=== PATIENT | male | born 1975 | race Two or more races ===

== ENCOUNTER 2017-11-20 22:12 | Emergency (ER) | payer MEDICAID ==
[~2017-11-20] VITALS: Ht 172.7 cm; Wt 99.8 kg
[2017-11-20 22:33] VITALS: BP 154/9
[2017-11-20] MEDS ORDERED: IBUPROFEN 600 MG TABLET PO ONE ×2 (23:30)
[2017-11-21] MEDS ORDERED: [UNRECOGNIZED DRUG - OTHER] ONE (00:02)
--- NOTE | 2017-11-21 00:02 | NUR ---
MEDICATED WITH EAR DROPS VERBALLY ORDERED BY DR. PALAFOX
[2017-11-21] MEDS ORDERED: [UNRECOGNIZED DRUG - OTHER] OT ONE ×2 (00:30)
== END 2017-11-21 00:04 | disposition home or self-care (01) ==
LOC: ER 22:13
DX: H60.8X2 Other otitis externa, left ear (principal)
CPT/HCPCS: 99282; A4606; Z7610

== ENCOUNTER 2018-01-07 22:27 | Inpatient (IN) | payer MEDICAID ==
[~2018-01-07] VITALS: Ht 167.6 cm; Wt 110.0 kg
--- NOTE | 2018-01-08 01:05 | NUR ---
pt arrived c/o of tingling sensationg on the left side of the body with weakness, denies pain.
[2018-01-08] MEDS ORDERED: IV NS 0.9% 500 ML BAG IV ONE (01:30)
--- NOTE | 2018-01-08 01:45 | NUR ---
18G IV TO R AC X 1 ATTEMPT USING ASEPTIC TECH, BLOOD HANDED OVER TO THE LAB AT BEDSIDE. IV FLUSHES EASILY WITH NS, NO S/S INFILTRATION NOTED AT THIS TIME.
[2018-01-08 01:56] LABS: BASOPHILS % (AUTO) 0.3 % (0.0-2.0); EOSINOPHILS % (AUTO) 2.8 % (0.0-6.0); HEMATOCRIT 48 % (39-51); HEMOGLOBIN 15.5 g/dL (13.5-17.5); LYMPHOCYTES # (AUTO) 2.8 /CMM (0.8-4.8); MEAN CORPUSCULAR HGB CONC 32 g/dl (31.0-36.0); MEAN CORPUSCULAR VOLUME 86 fL (80-96); MONOCYTES # (AUTO) 0.5 /CMM (0.1-1.30); MONOCYTES % (AUTO) 6.1 % (2.0-12.0); NEUTROPHILS # (AUTO) 4.9 /CMM (1.8-8.9); NEUTROPHILS % (AUTO) 57.8 % (43.0-81.0); PLATELET COUNT (AUTO) 274 /CMM (150-450); RDW COEFFICIENT OF VARIATION 13.4 (11.5-15.0); RED BLOOD CELL COUNT(AUTO) 5.61 MIL/uL (4.5-6.0); WHITE BLOOD COUNT (AUTO) 8.5 K/uL (4.3-11.0)
[2018-01-08 02:07] LABS: CALCIUM, SERUM 8.6 mg/dL (8.5-10.1); CARBON DIOXIDE 27 mmol/L (21-32); CHLORIDE 100 mmol/L (98-107); CREATININE 0.8 mg/dL (0.6-1.3); GLUCOSE 206 mg/dL (74-106); POTASSIUM 3.4 mmol/L (3.5-5.1); SODIUM SERUM 135 mmol/L (136-145); UREA NITROGEN, BLOOD 16 mg/dL (7-18)
[2018-01-08 02:09] LABS: ALCOHOL, BLOOD < 3 mg/dL (0-0)
[2018-01-08 02:12] LABS: INR 0.96 (0.87-1.13)
[2018-01-08 02:15] LABS: TROPONIN I < 0.017 ng/mL (0.00-0.056)
[2018-01-08] MEDS ORDERED: ASPIRIN 81 MG TAB.CHEW PO ONE (02:30)
--- NOTE | 2018-01-08 02:48 | NUR ---
REPORT GIVEN NURSE PRIETO JOHANSEN
--- NOTE | 2018-01-08 03:05 | NUR ---
TELE ADMISSION NOTES Patient came to unit via gurney. at bedside. Breathing even and unlabored. Not in any distress. BRETT Olivera translated for me. Patient denies any chest pain, denies any weakness. Stated that he came to the hospital for shortness of breath and numbness of left arm and leg. V/S checked, WNL. No skin issues. Patient able to follow commands. No complaints as of this time. Tele monitor in place, sinus rhythm 81. Oriented to call murry, placed within easy reach. Bed in low locked position. Will continue to monitor accordingly
[2018-01-08 03:10] VITALS: BP 137/82
[2018-01-08] MEDS ORDERED: ASPIRIN 81 MG TAB.CHEW ONE (03:12)
--- NOTE | 2018-01-08 04:45 | NUR ---
ROAD INSPECTOR NOTES Patient is alert, oriented x 4. Able to follow directions/commands. No drift with both arms and legs. Normal horizontal movement, no visual field defect. Normal articulation, able to speak fluently in french with no problems. Able to answer question. Patient able to close lips. Gag reflex is strong and able to cough. Patient was able to drink water with no problem. No drooling noted, no dribbling of water noted, no facial droop noted. Educational pamphlet given to patient. Will notify MD and monitor accordingly
--- NOTE | 2018-01-08 05:25 | NUR ---
CLAY MIXER NOTES Called [facility] to inform Dr. De Luna regarding swallow test. A/W callback
[2018-01-08] MEDS ORDERED: BLOOD SUGAR DIAGNOSTIC 1 EACH STRIP IN SCH (06:00)
[2018-01-08] MEDS: BLOOD SUGAR DIAGNOSTIC 1 EACH STRIP IN SCH ×4 (06:32→21:38)
[2018-01-08 06:43] LABS: BASOPHILS % (AUTO) 0.5 % (0.0-2.0); EOSINOPHILS % (AUTO) 2.2 % (0.0-6.0); HEMATOCRIT 45 % (39-51); HEMOGLOBIN 14.9 g/dL (13.5-17.5); LYMPHOCYTES # (AUTO) 2.4 /CMM (0.8-4.8); LYMPHOCYTES % (AUTO) 32.8 % (20.0-44.0); MEAN CORPUSCULAR HGB CONC 33 g/dl (31.0-36.0); MEAN CORPUSCULAR VOLUME 86 fL (80-96); MONOCYTES # (AUTO) 0.5 /CMM (0.1-1.30); MONOCYTES % (AUTO) 6.6 % (2.0-12.0); NEUTROPHILS # (AUTO) 4.2 /CMM (1.8-8.9); NEUTROPHILS % (AUTO) 57.9 % (43.0-81.0); PLATELET COUNT (AUTO) 287 /CMM (150-450); RDW COEFFICIENT OF VARIATION 13.6 (11.5-15.0); RED BLOOD CELL COUNT(AUTO) 5.27 MIL/uL (4.5-6.0); WHITE BLOOD COUNT (AUTO) 7.2 K/uL (4.3-11.0)
[2018-01-08 06:52] LABS: INR 0.99 (0.87-1.13)
[2018-01-08 06:53] LABS: CALCIUM, SERUM 8.5 mg/dL (8.5-10.1); CREATININE 0.7 mg/dL (0.6-1.3); POTASSIUM 3.3 mmol/L (3.5-5.1)
[2018-01-08 07:01] LABS: THYROID STIMULATING HORMONE 3.013 uIU/mL (0.358-3.74)
[2018-01-08 07:03] LABS: ALBUMIN 3.3 g/dL (3.4-5.0); BILIRUBIN,TOTAL 0.3 mg/dL (0.2-1.0); TOTAL PROTEIN, SERUM 6.8 g/dL (6.4-8.2)
--- NOTE | 2018-01-08 07:35 | NUR ---
PREMIUM CANCELLATION CLERK CLOSING NOTES Patient in bed, alert,oriented x 4. Family at bedside. Breathing even and unlabored. Not in any distress. MRSA swab done. Urine collected, sent to lab. Tele monitor in place, sinus rhythm 90. All needs attended to. All due medications given as ordered. Endorsed ALYSSA to oncoming RN.
--- NOTE | 2018-01-08 07:37 | NUR ---
FUEL OIL CLERK OPENING NOTE RECEIVED PATIENT IN BED. ALERT ORIENTED X4. ON ROOM AIR TOLERATING WELL. IN NO APPARENT DISTRESS OR DISCOMFORT AT THIS TIME. RESPIRATIONS EVEN AND UNLABORED. DENIES PAIN AND SOB. PATIENT WITH CLEAR SPEECH, ABLE TO COMMUNICATE NEEDS, BARBADIAN SPEAKING. NO FACIAL DROOPING OBSERVED. ALFREDO.PATIENT IS ABLE TO AMBULATE TO BATHROOM. RIGHT AC 18G IVC SL, PATENT AND INTACT. ALL NEEDS ATTENDED. BED IN LOW LOCKED POSITION, SIDE RAILS UP X2, CALL LIGHT WITHIN EASY REACH. WILL CONTINUE TO MONITOR.
[2018-01-08 08:00] VITALS: BP 127/71
[2018-01-08] MEDS ORDERED: POTASSIUM CHLORIDE 20 MEQ TAB.PRT.SR PO SCH ×2 (10:30→13:00)
[2018-01-08 11:30] LABS: CHOLESTEROL 192 mg/dL (<200); HDL CHOLESTEROL 43 mg/dL (40-60); LDL 125 mg/dL (0-99); TRIGLYCERIDES 243 mg/dL (30-150)
[2018-01-08] MEDS: ASPIRIN EC 81 MG TABLET.DR PO SCH (12:38)
[2018-01-08] MEDS: ATORVASTATIN 10 MG TABLET PO SCH ×2 (12:38→21:38)
[2018-01-08 12:54] LABS: APPEARANCE,URINE CLEAR (CLEAR); BILIRUBIN,URINE NEGATIVE (NEGATIVE); BLOOD, URINE NEGATIVE Ery/uL (NEGATIVE); COLOR,URINE YELLOW (YELLOW); KETONES,URINE NEGATIVE (NEGATIVE); LEUKOCYTE ESTERASE ,URINE NEGATIVE (NEGATIVE); NITRITE, URINE NEGATIVE (NEGATIVE); PROTEIN,URINE NEGATIVE (NEGATIVE); UGLUCOSE NEGATIVE (NEGATIVE); UROBILINOGEN,URINE 0.2 EU/dL (0.2)
[2018-01-08] MEDS ORDERED: SITAGLIPTIN PHOSPHATE 50 MG TABLET PO SCH (13:00)
[2018-01-08] MEDS: METFORMIN 500 MG TABLET PO SCH ×2 (13:55→17:10)
[2018-01-08] MEDS: LINAGLIPTIN 5 MG TABLET PO SCH (13:55)
[2018-01-08] MEDS: LISINOPRIL (10MG) 10 MG TABLET PO SCH (13:55)
[2018-01-08 16:00] VITALS: BP 132/85
--- NOTE | 2018-01-08 19:20 | NUR ---
MS RN CLOSING NOTE PATIENT IN BED. ALERT ORIENTED X4. ON ROOM AIR TOLERATING WELL. IN NO APPARENT DISTRESS OR DISCOMFORT AT THIS TIME. RESPIRATIONS EVEN AND UNLABORED. DENIES PAIN AND SOB. PATIENT WITH CLEAR SPEECH, ABLE TO COMMUNICATE NEEDS, ICELANDIC SPEAKING. NO FACIAL DROOPING OBSERVED. ALFREDO. DENIES UNILATERAL OR BILATERAL WEAKNESS. PATIENT IS ABLE TO AMBULATE TO BATHROOM. RIGHT AC 18G IVC SL, PATENT AND INTACT. ALL NEEDS ATTENDED. KEPT CLEAN AND COMFORTABLE. BED IN LOW LOCKED POSITION, SIDE RAILS UP X2, CALL LIGHT WITHIN EASY REACH. WILL ENDORSE TO PM NURSE FOR ALYSSA.
--- NOTE | 2018-01-08 19:30 | NUR ---
RN OPENING NOTES PATIENT AWAKE AND RESTING IN BED. PT PRIMARILY VIET[place]ESE SPEAKER. FAMILY AT BEDSIDE. NO COMPLAINTS OF PAIN, SOB OR DISTRESS AT THIS TIME. NO FACIAL DROOPING NOTED. DENIES WEAKNESS IN EXTREMITIES. PT HAS A RIGHT AC #18 INTACT AND PATENT. SAFETY PRECAUTIONS IN PLACE, BED IN LOWEST LOCKED POSITION, X2 SIDE RAILS UP AND CALL LIGHT WITHIN REACH. WILL CONTINUE TO MONITOR.
[2018-01-08 20:00] VITALS: BP_SYST 121; BP_SYST 134; BP_DIAS 75; BP_DIAS 79
--- NOTE | 2018-01-09 06:43 | NUR ---
RN CLOSING NOTES PATIENT AWAKE AND RESTING IN BED. PT PRIMARILY ESTONIAN SPEAKER. NO COMPLAINTS OF PAIN, SOB OR DISTRESS OVERNIGHT. NO FACIAL DROOPING NOTED. DENIES WEAKNESS IN EXTREMITIES. PT HAS A RIGHT AC #18 INTACT AND PATENT. SAFETY PRECAUTIONS IN PLACE, BED IN LOWEST LOCKED POSITION, X2 SIDE RAILS UP AND CALL LIGHT WITHIN REACH. WILL ENDORSE TO DAY SHIFT NURSE FOR CONTINUITY OF CARE.
[2018-01-09 06:51] LABS: BASOPHILS % (AUTO) 0.3 % (0.0-2.0); EOSINOPHILS % (AUTO) 2.8 % (0.0-6.0); HEMATOCRIT 47 % (39-51); HEMOGLOBIN 15.4 g/dL (13.5-17.5); LYMPHOCYTES # (AUTO) 2.2 /CMM (0.8-4.8); LYMPHOCYTES % (AUTO) 25.3 % (20.0-44.0); MEAN CORPUSCULAR HGB CONC 33 g/dl (31.0-36.0); MEAN CORPUSCULAR VOLUME 86 fL (80-96); MONOCYTES # (AUTO) 0.7 /CMM (0.1-1.30); MONOCYTES % (AUTO) 7.8 % (2.0-12.0); NEUTROPHILS # (AUTO) 5.7 /CMM (1.8-8.9); NEUTROPHILS % (AUTO) 63.8 % (43.0-81.0); PLATELET COUNT (AUTO) 278 /CMM (150-450); RDW COEFFICIENT OF VARIATION 13.5 (11.5-15.0); RED BLOOD CELL COUNT(AUTO) 5.45 MIL/uL (4.5-6.0); WHITE BLOOD COUNT (AUTO) 8.9 K/uL (4.3-11.0)
[2018-01-09 06:56] LABS: CALCIUM, SERUM 8.8 mg/dL (8.5-10.1); CREATININE 0.8 mg/dL (0.6-1.3); POTASSIUM 3.5 mmol/L (3.5-5.1)
[2018-01-09] MEDS: BLOOD SUGAR DIAGNOSTIC 1 EACH STRIP IN SCH ×3 (06:57→16:31)
[2018-01-09 07:09] LABS: INR 0.98 (0.87-1.13)
--- NOTE | 2018-01-09 08:10 | NUR ---
ms rn receive don bed, awake,alert,oriented x4,not in any form of distress,respirations even and unlabored,no sob noted, lungs are clear,abdomen soft,positive bowel sounds,denies pain at this time,will monitor patient.
[2018-01-09 08:15] VITALS: BP 130/79
--- NOTE | 2018-01-09 09:00 | NUR ---
ms murcia breakfast served,due meds given,tolerated well.
[2018-01-09] MEDS: METFORMIN 500 MG TABLET PO SCH ×2 (09:29→16:31)
[2018-01-09] MEDS: ASPIRIN EC 81 MG TABLET.DR PO SCH (09:30)
[2018-01-09] MEDS: LISINOPRIL (10MG) 10 MG TABLET PO SCH (09:30)
[2018-01-09] MEDS: LINAGLIPTIN 5 MG TABLET PO SCH (09:30)
--- NOTE | 2018-01-09 11:30 | NUR ---
ms rn was seen by gonzalez hernandez/ order to go home today, pt aware.
--- NOTE | 2018-01-09 12:00 | NUR ---
MS RN BLOOD SUGAR - 179 - NO COVERAGE ORDERED,PATIENT IS ON 2 PO DM PILLS.
[2018-01-09] MEDS ORDERED: METF-440 PO (14:33)
[2018-01-09] MEDS ORDERED: LINA5TAB PO (14:33)
[2018-01-09] MEDS ORDERED: ASPI-1152 PO (14:33)
[2018-01-09] MEDS ORDERED: LISI10TA59 PO (14:33)
[2018-01-09] MEDS ORDERED: ATOR10TA PO (14:33)
[2018-01-09 16:00] VITALS: BP 147/79
--- NOTE | 2018-01-09 16:30 | NUR ---
MS JOHANSEN BLOOD SUGAR - 131 - NO COVERAGE ORDERED, DUE MEDS GIVEN,TOLERATED WELL.
--- NOTE | 2018-01-09 16:45 | NUR ---
MS RN PATIENT WENT HOME ACCOMPANIED BY FAMILY, DISCHARGE INSTRUCTIONS GIVEN W/ RX. ALL NEEDS ATTENDED.
== END 2018-01-09 16:30 | disposition home or self-care (01) | DRG 47 ==
LOC: ER 22:30 → TELE 01-08 02:38 → MED 01-08 12:33
PROVIDERS: ADMIT Internal Medicine; ATTEND Internal Medicine
DX: G45.9 Transient cerebral ischemic attack, unspecified (principal); E43 Unspecified severe protein-calorie malnutrition; E88.81 Metabolic syndrome and other insulin resistance; R20.2 Paresthesia of skin; E11.65 Type 2 diabetes mellitus with hyperglycemia; E87.6 Hypokalemia; E78.5 Hyperlipidemia, unspecified; E66.01 Morbid (severe) obesity due to excess calories; E88.09 Other disorders of plasma-protein metabolism, not elsewhere classified; R51 Headache; Z68.39 Body mass index [BMI] 39.0-39.9, adult; I34.0 Nonrheumatic mitral (valve) insufficiency; R07.9 Chest pain, unspecified; I11.9 Hypertensive heart disease without heart failure
CPT/HCPCS: 36415; 70450-TC; 71045-TC; 80048-TC; 80053-TC; 80061-TC; 80305; 81000-TC; 82962-TC; 83880; 84443-TC; 84484-TC; 85025-TC; 85652-TC; 85730-TC; 87081-TC; 92611-TC; 93307-TC; 93880-TC; A4606; G0480; J7040; Z7610

== ENCOUNTER 2018-01-09 22:18 | Emergency (ER) | payer MEDICAID ==
[~2018-01-09] VITALS: Ht 167.6 cm; Wt 108.9 kg
[~2018-01-09 22:18] MED LIST: ASPI-1152 PO; ATOR10TA PO; LINA5TAB PO; LISI10TA59 PO; METF-440 PO
[2018-01-09 23:45] VITALS: BP 146/104
--- NOTE | 2018-01-09 23:47 | NUR ---
EKG DONE AT BEDSIDE
[2018-01-10] MEDS ORDERED: LORAZEPAM 1 MG TABLET PO ONE
[2018-01-10] MEDS ORDERED: LORAZEPAM 1 MG TABLET ONE (00:05)
--- NOTE | 2018-01-10 00:07 | NUR ---
ALL ORDERED MEDS GIVEN
--- NOTE | 2018-01-10 00:08 | NUR ---
Patient discharged to home in stable condition. Written and verbal after care instructions given. Patient verbalizes understanding of instruction. Patient instructed not to drive. Patient left on foot walking with steady gait. No s/s of acute distress or sob noted. VS stable.
== END 2018-01-10 00:10 | disposition home or self-care (01) ==
LOC: ER 22:22
DX: F41.9 Anxiety disorder, unspecified (principal); Z79.82 Long term (current) use of aspirin
CPT/HCPCS: 93005; 99283; A4606; Z7610

== ENCOUNTER 2018-05-10 03:14 | Emergency (ER) | payer MEDICAID ==
[~2018-05-10] VITALS: Ht 172.7 cm; Wt 103.0 kg
--- NOTE | 2018-05-10 03:20 | NUR ---
Pt came to emergency dept. complaining of chest pain for the last week, with left arm numbness. Pt is currently not having any chest pain. Pt states that he stopped taking BP medication 4 months ago. Pt AAXO4. Pt put on the monitor and pulse ox. Pt hypertensive on the monitor. Respirations even and unlabored. Pt pending eval from ER .
[2018-05-10] MEDS ORDERED: ASPIRIN 325 MG TABLET PO ONE (03:30)
[2018-05-10] MEDS ORDERED: NITROGLYCERIN 0.4 MG/TAB BOTTLE SL ONE (03:30)
[2018-05-10] MEDS ORDERED: NITROGLYCERIN 0.4 MG/TAB BOTTLE ONE (03:31)
[2018-05-10] MEDS ORDERED: ASPIRIN 325 MG TABLET ONE (03:32)
--- NOTE | 2018-05-10 03:45 | NUR ---
Radiology at bedside for XRAY.
[2018-05-10 03:48] LABS: BASOPHILS # (AUTO) 0.1 /CMM (0.0-0.2); BASOPHILS % (AUTO) 0.8 % (0.0-2.0); EOSINOPHILS % (AUTO) 2.5 % (0.0-6.0); HEMATOCRIT 47 % (39-51); HEMOGLOBIN 15.9 g/dL (13.5-17.5); LYMPHOCYTES # (AUTO) 2.6 /CMM (0.8-4.8); LYMPHOCYTES % (AUTO) 37.1 % (20.0-44.0); MEAN CORPUSCULAR HGB CONC 33 g/dl (31.0-36.0); MEAN CORPUSCULAR VOLUME 86 fL (80-96); MONOCYTES # (AUTO) 0.7 /CMM (0.1-1.30); MONOCYTES % (AUTO) 9.2 % (2.0-12.0); NEUTROPHILS # (AUTO) 3.6 /CMM (1.8-8.9); NEUTROPHILS % (AUTO) 50.4 % (43.0-81.0); PLATELET COUNT (AUTO) 318 /CMM (150-450); RED BLOOD CELL COUNT(AUTO) 5.53 MIL/uL (4.5-6.0); WHITE BLOOD COUNT (AUTO) 7.1 K/uL (4.3-11.0)
[2018-05-10 03:56] LABS: CALCIUM, SERUM 8.8 mg/dL (8.5-10.1); CARBON DIOXIDE 27 mmol/L (21-32); CHLORIDE 100 mmol/L (98-107); CREATININE 0.7 mg/dL (0.6-1.3); GLUCOSE 107 mg/dL (74-106); POTASSIUM 3.4 mmol/L (3.5-5.1); SODIUM SERUM 138 mmol/L (136-145); UREA NITROGEN, BLOOD 13 mg/dL (7-18)
--- NOTE | 2018-05-10 04:08 | NUR ---
Pt ambulatory with steady gait to bathroom.
--- NOTE | 2018-05-10 04:14 | NUR ---
Pt resting in bed and being monitored.
--- NOTE | 2018-05-10 05:00 | NUR ---
rPatient is resting comfortably in bed with eyes closed. Easily aroused. VSS. NAD NOTED.
--- NOTE | 2018-05-10 06:14 | NUR ---
Patient is resting comfortably in bed with eyes closed. Easily aroused. VSS. NAD NOTED. FAMILY AT BEDSIDE.
--- NOTE | 2018-05-10 06:24 | NUR ---
Translator Deaf at bedside for lab draw.
[2018-05-10 07:21] VITALS: BP 148/89
--- NOTE | 2018-05-10 07:22 | NUR ---
Patient discharged to home in stable condition. Written and verbal after care instructions given. Patient verbalizes understanding of instruction.IV removed. Catheter intact and site benign. Pressure and 4x4 applied to site. No bleeding noted.
== END 2018-05-10 07:24 | disposition home or self-care (01) ==
LOC: ER 03:14
DX: R07.89 Other chest pain (principal); I16.0 Hypertensive urgency; I10 Essential (primary) hypertension; Z79.82 Long term (current) use of aspirin
CPT/HCPCS: 36415; 71045-TC; 80048-TC; 82962-TC; 84484-TC; 85025-TC; 85378-TC; 85730-TC

== ENCOUNTER 2018-06-16 21:18 | Emergency (ER) | payer MEDICAID ==
[~2018-06-16] VITALS: Ht 160 cm; Wt 99.8 kg
[2018-06-16 21:28] VITALS: BP 146/93
[2018-06-16] MEDS ORDERED: PROPARACAINE HCL OPHTH 15 ML BOTTLE ONE (22:21)
[2018-06-16] MEDS ORDERED: TETRACAINE HCL/PF 0.5% UD 2 ML BOTTLE ONE (22:21)
[2018-06-16] MEDS ORDERED: FLUORESCEIN SODIUM OPHTH 1 EA STRIP OP ONE (22:30)
[2018-06-16] MEDS ORDERED: IV NS 0.9% 1,000 ML BAG IV ONE (22:30)
[2018-06-16] MEDS ORDERED: TETRACAINE HCL/PF 0.5% UD 2 ML BOTTLE OP ONE (22:30)
[2018-06-16] MEDS ORDERED: FLUORESCEIN SODIUM OPHTH 1 EA STRIP ONE (22:32)
== END 2018-06-16 23:20 | disposition home or self-care (01) ==
LOC: ER 21:24
DX: S05.01XA Injury of conjunctiva and corneal abrasion without foreign body, right eye, initial encounter (principal); I25.10 Atherosclerotic heart disease of native coronary artery without angina pectoris; I10 Essential (primary) hypertension; E11.9 Type 2 diabetes mellitus without complications; Z79.82 Long term (current) use of aspirin; X58.XXXA Exposure to other specified factors, initial encounter; Y93.89 Activity, other specified; Y92.89 Other specified places as the place of occurrence of the external cause; Y99.8 Other external cause status

== ENCOUNTER 2019-07-18 05:48 | Emergency (ER) | payer MEDICAID ==
[~2019-07-18] VITALS: Ht 160 cm; Wt 99.8 kg
[~2019-07-18 05:48] MED LIST changes: +LISI-605 PO; -LISI10TA59 PO
[2019-07-18 05:58] VITALS: BP 151/75
== END 2019-07-18 06:54 | disposition home or self-care (01) ==
LOC: ER 05:51
DX: E11.65 Type 2 diabetes mellitus with hyperglycemia (principal); I10 Essential (primary) hypertension; K21.9 Gastro-esophageal reflux disease without esophagitis; I25.10 Atherosclerotic heart disease of native coronary artery without angina pectoris; Z79.899 Other long term (current) drug therapy; Z79.82 Long term (current) use of aspirin; Z76.0 Encounter for issue of repeat prescription; Z79.84 Long term (current) use of oral hypoglycemic drugs
CPT/HCPCS: 82962-TC

== ENCOUNTER 2019-08-25 08:31 | Emergency (ER) | payer MEDICAID ==
[~2019-08-25] VITALS: Ht 167.6 cm; Wt 105.2 kg
--- NOTE | 2019-08-25 08:38 | NUR ---
patient came in to the er c/o upper and lower extremities pain x 3 months 8/10 pain scale. On room air, breathing evenly and unlabored. kept comfortable, will continue to monitor accordingly.
[2019-08-25] MEDS ORDERED: ONDANSETRON HCL/PF 4 MG/2 ML VIAL ONE (08:56)
[2019-08-25] MEDS ORDERED: MORPHINE SULFATE INJ 4 MG/ML DISP.SYRIN ONE (08:57)
[2019-08-25] MEDS ORDERED: MORPHINE SULFATE INJ 2 MG/ML DISP.SYRIN IV ONE (09:00)
[2019-08-25] MEDS ORDERED: ONDANSETRON HCL/PF 4 MG/2 ML VIAL IVP ONE (09:00)
[2019-08-25] MEDS ORDERED: IV NS 0.9% 500 ML BAG IV ONE (09:00)
[2019-08-25 09:09] LABS: BASOPHILS % (AUTO) 0.5 % (0.0-2.0); EOSINOPHILS % (AUTO) 2.4 % (0.0-6.0); HEMATOCRIT 47 % (39-51); HEMOGLOBIN 15.5 g/dL (13.5-17.5); LYMPHOCYTES # (AUTO) 1.7 /CMM (0.8-4.8); LYMPHOCYTES % (AUTO) 32.8 % (20.0-44.0); MEAN CORPUSCULAR HGB CONC 33 g/dl (31.0-36.0); MEAN CORPUSCULAR VOLUME 86 fL (80-96); MONOCYTES # (AUTO) 0.4 /CMM (0.1-1.30); MONOCYTES % (AUTO) 7.3 % (2.0-12.0); NEUTROPHILS # (AUTO) 2.9 /CMM (1.8-8.9); PLATELET COUNT (AUTO) 307 /CMM (150-450); RED BLOOD CELL COUNT(AUTO) 5.47 MIL/uL (4.5-6.0); WHITE BLOOD COUNT (AUTO) 5.1 K/uL (4.3-11.0)
[2019-08-25 09:16] LABS: CALCIUM, SERUM 8.6 mg/dL (8.5-10.1); CREATININE 0.8 mg/dL (0.6-1.3); POTASSIUM 3.6 mmol/L (3.5-5.1)
[2019-08-25 10:18] VITALS: BP 136/83
--- NOTE | 2019-08-25 10:18 | NUR ---
patient a/ox4, breathing even and unlabored, no sob noted, needs attended. kept comfortable. IV removed. Catheter intact and site benign. Pressure and 4x4 applied to site. No bleeding noted.Patient discharged to home in stable condition. Written and verbal after care instructions given. Patient verbalizes understanding of instruction.
== END 2019-08-25 10:19 | disposition home or self-care (01) ==
LOC: ER 08:33
DX: M79.18 Myalgia, other site (principal); I10 Essential (primary) hypertension; I25.10 Atherosclerotic heart disease of native coronary artery without angina pectoris; E11.9 Type 2 diabetes mellitus without complications; Z79.899 Other long term (current) drug therapy; Z79.82 Long term (current) use of aspirin
CPT/HCPCS: 36415; 80048; 85025; 96374; 96375; 99284; J2270; J2405; J7040

== ENCOUNTER 2020-12-17 22:19 | Emergency (ER) | payer MEDICAID ==
[~2020-12-17] VITALS: Ht 160 cm; Wt 97.5 kg
[~2020-12-17 22:19] MED LIST changes: -ASPI-1152 PO; +ASPI-1420 PO; -LISI-605 PO; +LISI10TA30 PO
[2020-12-17 23:35] VITALS: BP 139/89
[2020-12-17] MEDS ORDERED: CIPR7.5D9 EACH EAR (23:53)
== END 2020-12-17 23:57 | disposition home or self-care (01) ==
LOC: ER 22:27
DX: H60.93 Unspecified otitis externa, bilateral (principal); I10 Essential (primary) hypertension; I25.10 Atherosclerotic heart disease of native coronary artery without angina pectoris; E11.9 Type 2 diabetes mellitus without complications; Z79.899 Other long term (current) drug therapy; Z79.82 Long term (current) use of aspirin; Z79.84 Long term (current) use of oral hypoglycemic drugs

== ENCOUNTER 2023-10-14 19:36 | Emergency (ER) | payer MEDICAID ==
[~2023-10-14] VITALS: Ht 167.6 cm; Wt 98.9 kg
[~2023-10-14 19:36] MED LIST changes: +CIPR7.5D9 EACH EAR
[2023-10-14] MEDS: IBUPROFEN 600 MG TABLET PO ONE (20:00)
[2023-10-14] MEDS ORDERED: IBUPROFEN 600 MG TABLET ONE (20:04)
[2023-10-14 21:13] VITALS: BP 125/95; TEMP 98.2; O2SAT 98
== END 2023-10-14 21:13 | disposition home or self-care (01) ==
LOC: ER 19:39
DX: M25.561 Pain in right knee (principal); I10 Essential (primary) hypertension; I25.10 Atherosclerotic heart disease of native coronary artery without angina pectoris; E11.9 Type 2 diabetes mellitus without complications; Z79.899 Other long term (current) drug therapy; Z79.82 Long term (current) use of aspirin; Z79.84 Long term (current) use of oral hypoglycemic drugs
CPT/HCPCS: 73564-TC